=== PATIENT | male | born 1950 ===

== ENCOUNTER 2017-03-14 06:32 | Day surgery (SDC) | payer MEDICARE, BC ==
[2017-03-09 12:05] VITALS: BMI 24.3
[2017-03-14] MEDS ORDERED: Propofol 10 mg/ml Inj (20 ML) ONE (08:00)
[2017-03-14] MEDS ORDERED: Sodium Chloride 0.9% 1,000 ML IV SCH (08:45)
[2017-03-14 09:20] VITALS: PULSE 57; RESP 20; TEMP 97.8; O2SAT 97
[2017-03-14 09:48] VITALS: BP 134/83
== END 2017-03-14 09:47 | disposition home or self-care (01) ==
LOC: ENDO 06:32
PROVIDERS: ATTEND Specialist
DX: Z12.11 Encounter for screening for malignant neoplasm of colon (principal); K57.30 Diverticulosis of large intestine without perforation or abscess without bleeding; K64.8 Other hemorrhoids; Z80.0 Family history of malignant neoplasm of digestive organs
CPT/HCPCS: 45378; J2704; J7040 ×2